=== PATIENT | female | born 1955 | race Asian ===

== ENCOUNTER 2022-07-21 09:58 | Emergency (ER) | payer MEDICARE ==
[~2022-07-21] VITALS: Ht 149.9 cm; Wt 44.5 kg
[2022-07-21 10:56] LABS: CLARITY,URINE CLOUDY (CLEAR); COLOR,URINE RED (YELLOW); KETONES,URINE NEGATIVE (NEGATIVE); LEUKOCYTE ESTERASE ,URINE LARGE (NEGATIVE); NITRITE,URINE NEGATIVE (NEGATIVE); PROTEIN,URINE DIPSTICK 2+ (NEGATIVE); URINE UROBILINOGEN 0.2 mg/dL (0.2 - 1)
[2022-07-21 11:09] LABS: BACTERIA,URINE MODERATE /HPF; EPITHELIAL CELLS,URINE FEW /LPF; RBC,URINE >50 /HPF (0-5); WBC,URINE (MAN) >50 /HPF (0-5)
[2022-07-21] MEDS ORDERED: CEFTRIAXONE 1 GM VIAL IM ONE (12:00)
[2022-07-21] MEDS ORDERED: LIDOCAINE HCL 1% LOCAL INJ 20 ML VIAL INJ ONE (12:15)
[2022-07-21] MEDS ORDERED: LIDOCAINE 1% 10 ML MULTIDOSE VIAL IJ ONE (12:25)
[2022-07-21] MEDS ORDERED: CEFUROXIME250 MG PO (13:21)
[2022-07-21] MEDS ORDERED: PYRIDIUM100 MG PO (13:21)
== END 2022-07-21 13:43 | disposition home or self-care (01) ==
LOC: ER 10:54
DX: R30.0 Dysuria (principal); N39.0 Urinary tract infection, site not specified; N18.6 End stage renal disease
CPT/HCPCS: 74176; 81001; 87086; 87186; 99284; J0696

== ENCOUNTER 2024-08-05 22:57 | Emergency (ER) | payer MEDICARE ==
[~2024-08-05] VITALS: Ht 152.4 cm; Wt 49.9 kg
[~2024-08-05 22:57] MED LIST: CEFUROXIME250 MG PO; PYRIDIUM100 MG PO
[2024-08-05] MEDS ORDERED: TOBREX3.5 GM OS (23:45)
[2024-08-05 23:50] VITALS: PULSE 88; RESP 18; TEMP 97.4
[2024-08-05] MEDS: FLUORESCEIN SOD(OPTH) 1 MG STRP OS ONE (23:52)
[2024-08-05] MEDS: TETRACAINE HCL 0.5% OPTH SOLN 4 ML BTL OS ONE (23:52)
[2024-08-06 00:15] VITALS: BP 128/84; O2SAT 98
== END 2024-08-06 00:18 | disposition home or self-care (01) ==
LOC: FSED 23:08
DX: H10.212 Acute toxic conjunctivitis, left eye (principal)
CPT/HCPCS: 99284